=== PATIENT | male | born 1930 | race Caucasian/White ===

== ENCOUNTER → 2016-12-30 | Outpatient (CLI) | payer MEDICARE, OTHER ==
[~2016-12-30] MED LIST: SULF1TAB3 PO; TRAM50TA53 PO
== END ==
LOC: NEU 09:18
PROVIDERS: ATTEND Psychiatry & Neurology Neurology
DX: G57.32 Lesion of lateral popliteal nerve, left lower limb (principal); M21.372 Foot drop, left foot; M54.17 Radiculopathy, lumbosacral region; G62.89 Other specified polyneuropathies; G56.03 Carpal tunnel syndrome, bilateral upper limbs
CPT/HCPCS: 95886; 95912